=== PATIENT | female | born 1985 | race American Indian/Alaskan Native ===

== ENCOUNTER 2017-05-04 01:30 | Emergency (ER) | payer SELFPAY ==
[2017-05-04 02:35] LABS: Alanine Aminotransferase 17 units/L (7-56); Albumin 4.4 g/dL (3.9-5); Albumin/Globulin Ratio 1.5 %; Alkaline Phosphatase 75 units/L (35-129); Anion Gap 15 mmol/L; BUN/Creatinine Ratio 13.75; Basophils % (Auto) 0.7 % (0.0-1.8); Blood Urea Nitrogen 11 mg/dL (7-17); Calcium 9.1 mg/dL (8.4-10.2); Carbon Dioxide 29 mmol/L (22-30); Chloride 100.3 mmol/L (98-107); Eosinophils % (Auto) 3.6 % (0.0-4.3); Glucose 94 mg/dL (65-100); Hematocrit 40.7 % (30.3-42.9); Hemoglobin 13.2 gm/dl (10.1-14.3); Mean Corpuscular HGB Conc 33 % (30-34); Mean Corpuscular Hemoglobin 27 pg (28-32); Mean Corpuscular Volume 84 fl (79-97); Platelet Count 247 K/mm3 (140-440); Red Blood Count 4.83 M/mm3 (3.65-5.03); Red Cell Distribution Width 13.5 % (13.2-15.2); Sodium 140 mmol/L (137-145); Total Protein 7.4 g/dL (6.3-8.2); White Blood Count 8.9 K/mm3 (4.5-11.0)
[2017-05-04 03:25] LABS: Bacteria,Urine 2+ /HPF (Negative); Bilirubin,Urine NEG (Negative); Blood,Urine NEG (Negative); Ketones,Urine NEG (Negative); Leukocyte Esterase,Urine SM (Negative); Mucus,Urine 3+ /HPF; Nitrite,Urine NEG (Negative)
[2017-05-04] MEDS ORDERED: NORCO 5/325 PO ONE (13:52)
--- NOTE | 2017-05-04 15:12 | Ultrasound Report ---
Transabdominal and transvaginal pelvic ultrasound. History: Pelvic pain. Findings: The uterus is normal in size and configuration with no focal abnormalities. The endometrial echo is normal and measures 10 mm in thickness. A linear echogenic structure within the endometrial cavity is consistent with an IUD. The ovaries are normal in size and configuration. Follicular cysts are noted on the right. No adnexal masses are seen. There is no fluid within the cul-de-sac. Impression: Normal study. Evidence of IUD is noted.
[2017-05-04 19:41] VITALS: BP 135/95
== END 2017-05-04 16:15 | disposition home or self-care (01) ==
LOC: ED 01:30
DX: N92.5 Other specified irregular menstruation (principal); N89.8 Other specified noninflammatory disorders of vagina; R10.2 Pelvic and perineal pain; F17.200 Nicotine dependence, unspecified, uncomplicated; N83.209 Unspecified ovarian cyst, unspecified side
CPT/HCPCS: 36415; 76830; 80053; 81001; 84703; 85025; 87210; 87591; 93975